=== PATIENT | male | born 1985 | race African-American/Black ===

== ENCOUNTER 2019-03-25 08:19 | Emergency (ER) | payer MEDICAID, MEDICARE, SELFPAY ==
[2019-03-25] MEDS ORDERED: Ondansetron ODT 4 MG TAB ONE (09:32)
[2019-03-25 11:27] LABS: Anion Gap 15 mmol/L (10-20); BUN (Urea Nitrogen) 39 mg/dL (8.9-20.6); Calc. Creatinine Clearance 0 mL/min (70-130); Calcium 9.8 mg/dL (7.8-10.44); Carbon Dioxide 29 mmol/L (22-29); Chloride 95 mmol/L (98-107); Estimated GFR-MDRD 70; Glucose 91 mg/dL (70-105); Sodium 136 mmol/L (136-145)
== END 2019-03-25 11:10 | disposition home or self-care (01) ==
LOC: ERS 08:19
DX: R11.2 Nausea with vomiting, unspecified (principal); F31.9 Bipolar disorder, unspecified; F17.210 Nicotine dependence, cigarettes, uncomplicated
CPT/HCPCS: 36415; 80048; 99284; Q0162

== ENCOUNTER 2019-05-11 18:29 | Emergency (ER) | payer SELFPAY ==
[~2019-05-11 18:29] MED LIST: ISOVUE-370 76%-LOCM 1 ML ONE
[2019-05-11] MEDS ORDERED: Ondansetron ODT 4 MG TAB ONE (19:24)
[2019-05-11 20:02] LABS: #Eosinphils 0.1 thou/uL (0.0-0.7); #Monocytes 0.6 thou/uL (0.11-0.59); #Neutrophils 3.2 thou/uL (1.40-6.50); %Basophils 0.5 % (0.0-1.0); %Eosinophils 0.9 % (0.0-10.0); %Monocytes 10.2 % (0.0-10.0); %Neutrophils 54.4 % (42.0-75.0); Hemoglobin 17.1 g/dL (14.0-18.0); Mean Corpuscular HGB CONC 34.6 g/dL (32.0-36.0); Mean Corpuscular Hemoglobin 34.3 pg (27.0-31.0); Mean Corpuscular Volume 99.1 fL (78.0-98.0); Mean Platelet Volume 7.5 fL (7.4-10.4); Platelet Count 275 thou/uL (130-400); RBC Distribution Width 12.2 % (11.5-14.5); Red Blood Cell (RBC) Count 4.99 mill/uL (4.70-6.10); White Blood Cell (WBC) Count 5.9 thou/uL (4.8-10.8)
[2019-05-11 20:13] LABS: ALT (SGPT) 25 U/L (8-55); AST (SGOT) 22 U/L (5-34); Albumin 5.4 g/dL (3.5-5.0); Alkaline Phosphatase 91 U/L (40-110); Anion Gap 19 mmol/L (10-20); BUN (Urea Nitrogen) 32 mg/dL (8.9-20.6); Bilirubin, Total 0.5 mg/dL (0.2-1.2); Calc. Creatinine Clearance 0 mL/min (70-130); Calcium 10.2 mg/dL (7.8-10.44); Carbon Dioxide 25 mmol/L (22-29); Chloride 98 mmol/L (98-107); Estimated GFR-MDRD 58; Globulin 3.6 g/dL (2.4-3.5); Glucose 87 mg/dL (70-105); Lipase 25 U/L (8-78); Potassium 3.6 mmol/L (3.5-5.1); Sodium 138 mmol/L (136-145)
[2019-05-11 20:15] LABS: Bilirubin Negative (Negative); Blood, Urine Trace (Negative); Clarity Clear (Clear); Glucose, Urine (Dipstick) Normal (Negative); Leukocyte Negative Leu/uL (Negative); Nitrite Negative (Negative); Protein, Urine (Dipstick) 30 mg/dL (Neg-Trace)
[2019-05-11 20:19] LABS: Bacteria/HPF None Seen HPF (None Seen); RBC/HPF None Seen HPF (0-3); Squamous Epithelial 0-3 HPF (0-3); WBC/HPF None Seen HPF (0-3)
--- NOTE | 2019-05-11 20:32 | CT ---
CT OF ABDOMEN AND PELVIS PERFORMED WITH CONTRAST ENHANCEMENT: History: Diffuse abdominal pain with vomiting and diarrhea. FINDINGS: The lung bases are clear. The liver, spleen, pancreas and gallbladder regions appear unremarkable. Right and left adrenal glands and right and left kidneys are normal in size. There is no significant periaortic adenopathy. There is mild mesenteric lymphadenopathy seen. There is mild mesenteric lympha denopathy seen. CT OF PELVIS PERFORMED WITH CONTRAST ENHANCEMENT: There is no evidence of adenopathy, mass, or free fluid. The appendix is normal. IMPRESSION: Findings that would suggest a mild mesenteric adenitis. POS: [facility]
== END 2019-05-11 22:08 | disposition home or self-care (01) ==
LOC: ERS 18:29
DX: R11.2 Nausea with vomiting, unspecified (principal); R19.7 Diarrhea, unspecified; R10.9 Unspecified abdominal pain; F17.210 Nicotine dependence, cigarettes, uncomplicated
CPT/HCPCS: 36415; 74177; 80053; 81003; 81015; 83690; 85025; 96360; 96361; Q0162; Q9966

== ENCOUNTER 2019-05-14 13:24 | Emergency (ER) | payer MEDICARE, SELFPAY ==
[2019-05-14] MEDS ORDERED: Haloperidol Lactate 5 MG/ML VIAL ONE (16:22)
[2019-05-14 16:39] LABS: #Basophils 0.1 thou/uL (0.0-0.2); #Lymphocytes 2.3 thou/uL (1.20-3.40); #Monocytes 0.7 thou/uL (0.11-0.59); %Basophils 1.7 % (0.0-1.0); %Eosinophils 0.3 % (0.0-10.0); %Lymphocytes 32.2 % (21.0-51.0); %Monocytes 9.2 % (0.0-10.0); %Neutrophils 56.6 % (42.0-75.0); Hemoglobin 17.2 g/dL (14.0-18.0); Mean Corpuscular HGB CONC 35.1 g/dL (32.0-36.0); Mean Platelet Volume 7.5 fL (7.4-10.4); Platelet Count 283 thou/uL (130-400); Red Blood Cell (RBC) Count 5.06 mill/uL (4.70-6.10); White Blood Cell (WBC) Count 7.1 thou/uL (4.8-10.8)
[2019-05-14 16:56] LABS: ALT (SGPT) 34 U/L (8-55); AST (SGOT) 29 U/L (5-34); Albumin 5.7 g/dL (3.5-5.0); Alkaline Phosphatase 101 U/L (40-110); Anion Gap 15 mmol/L (10-20); BUN (Urea Nitrogen) 34 mg/dL (8.9-20.6); Bilirubin, Total 0.5 mg/dL (0.2-1.2); Calc. Creatinine Clearance 0 mL/min (70-130); Calcium 10.6 mg/dL (7.8-10.44); Carbon Dioxide 28 mmol/L (22-29); Chloride 96 mmol/L (98-107); Estimated GFR-MDRD 38; Glucose 98 mg/dL (70-105); Lipase 39 U/L (8-78); Potassium 3.9 mmol/L (3.5-5.1); Protein, Total 9.7 g/dL (6.0-8.3); Sodium 135 mmol/L (136-145)
[2019-05-14] MEDS ORDERED: Capsaicin 0.025% Cream 60 gm Tube TOP SCH (17:15)
== END 2019-05-14 17:26 | disposition home or self-care (01) ==
LOC: ERS 13:24
DX: F12.288 Cannabis dependence with other cannabis-induced disorder (principal); N17.9 Acute kidney failure, unspecified; F31.9 Bipolar disorder, unspecified; F17.210 Nicotine dependence, cigarettes, uncomplicated
CPT/HCPCS: 80053; 83690; 85025; 96361; 96374; J1630

== ENCOUNTER 2019-07-05 18:52 | Emergency (ER) | payer MEDICARE ==
[~2019-07-05 18:52] MED LIST changes: -ISOVUE-370 76%-LOCM 1 ML ONE; +Iopamidol-370 76% 500 ML 1 ML ONE
[2019-07-05 19:50] LABS: #Lymphocytes 2.2 thou/uL (1.20-3.40); #Monocytes 0.7 thou/uL (0.11-0.59); #Neutrophils 5.2 thou/uL (1.40-6.50); %Basophils 0.6 % (0.0-1.0); %Eosinophils 0.6 % (0.0-10.0); %Lymphocytes 26.4 % (21.0-51.0); %Neutrophils 63.6 % (42.0-75.0); Hemoglobin 16.9 g/dL (14.0-18.0); Mean Corpuscular HGB CONC 34.4 g/dL (32.0-36.0); Mean Corpuscular Hemoglobin 34.4 pg (27.0-31.0); Mean Platelet Volume 7.2 fL (7.4-10.4); Platelet Count 296 thou/uL (130-400); RBC Distribution Width 12.2 % (11.5-14.5); White Blood Cell (WBC) Count 8.2 thou/uL (4.8-10.8)
[2019-07-05 20:03] LABS: Anion Gap 19 mmol/L (10-20); BUN (Urea Nitrogen) 36 mg/dL (8.9-20.6); Bilirubin, Total 0.4 mg/dL (0.2-1.2); Calc. Creatinine Clearance 0 mL/min (70-130); Calcium 10.2 mg/dL (7.8-10.44); Carbon Dioxide 25 mmol/L (22-29); Chloride 97 mmol/L (98-107); Estimated GFR-MDRD 53; Glucose 91 mg/dL (70-105); Potassium 3.2 mmol/L (3.5-5.1); Protein, Total 8.5 g/dL (6.0-8.3); Sodium 138 mmol/L (136-145)
[2019-07-05 20:04] LABS: ALT (SGPT) 57 U/L (8-55); AST (SGOT) 32 U/L (5-34); Alkaline Phosphatase 84 U/L (40-110); Globulin 3.5 g/dL (2.4-3.5); Lipase 171 U/L (8-78)
[2019-07-05 20:26] LABS: Bilirubin Negative (Negative); Blood, Urine Negative (Negative); Clarity Turbid (Clear); Glucose, Urine (Dipstick) Normal (Negative); Leukocyte Negative Leu/uL (Negative); Nitrite Negative (Negative); Protein, Urine (Dipstick) 20 mg/dL (Neg-Trace); Urobilinogen Normal mg/dL (Less than 2)
--- NOTE | 2019-07-05 20:36 | CT ---
CT Abdomen Pelvis W Con History: Pain in the right lower quadrant Comparison: CT abdomen pelvis April 2019 Findings: Lung bases are clear. No pericardial effusion. Liver, gallbladder, spleen, pancreas are nor mal. The aortoiliac contour is normal. The appendix is visualized and is normal. There are no dilated loops of large or small bowel. No free intraperitoneal gas or fluid. No acute osseous abnormality. No hydronephrosis. Impression: No acute inflammatory process within the abdomen or pelvis. Normal appendix.
[2019-07-05] MEDS ORDERED: Potassium Chloride 20 MEQ TAB ONE (20:52)
[2019-07-05] MEDS ORDERED: Clopidogrel Bisulfate 75 MG TAB ONE (20:52)
== END 2019-07-05 21:25 | disposition home or self-care (01) ==
LOC: ERS 18:52
DX: R11.2 Nausea with vomiting, unspecified (principal); F90.9 Attention-deficit hyperactivity disorder, unspecified type; F31.9 Bipolar disorder, unspecified; F17.210 Nicotine dependence, cigarettes, uncomplicated; Z79.899 Other long term (current) drug therapy
CPT/HCPCS: 36415; 74177; 80053; 81003; 83690; 85025; 96360; Q9967

== ENCOUNTER 2021-04-06 23:23 | Emergency (ER) | payer MEDICARE, MEDICAID ==
[2021-04-06] MEDS ORDERED: Ondansetron PF 4 MG/2 ML Vial ONE (23:56)
[2021-04-07 00:11] LABS: Bilirubin Negative (Negative); Blood, Urine Trace (Negative); Clarity Turbid (Clear); Glucose, Urine (Dipstick) Normal (Negative); Ketone, Urine Trace mg/dL (Negative); Leukocyte Negative Leu/uL (Negative); Nitrite Negative (Negative); Protein, Urine (Dipstick) 100 mg/dL (Neg-Trace); RBC/HPF 0-3 HPF (0-3); Specific Gravity, Urine 1.024 (1.002-1.036); Squamous Epithelial 0-3 HPF (0-3); Urobilinogen 3 mg/dL (Less than 2)
[2021-04-07] MEDS ORDERED: Albuterol Sulfate 1.25 MG/3 ML NEB ONE (00:12)
[2021-04-07 00:14] LABS: Bacteria/HPF 1+ HPF (None Seen)
[2021-04-07 00:20] LABS: Anion Gap 20 mmol/L (10-20); BUN (Urea Nitrogen) 24 mg/dL (8.9-20.6); Calc. Creatinine Clearance 0 mL/min (70-130); Carbon Dioxide 28 mmol/L (22-29); Chloride 95 mmol/L (98-107); Sodium 140 mmol/L (136-145)
[2021-04-07 00:21] LABS: #Lymphocytes 1.8 thou/uL (1.20-3.40); %Eosinophils 0.4 % (0.0-10.0); %Lymphocytes 22.8 % (21.0-51.0); %Monocytes 12.5 % (0.0-10.0); %Neutrophils 64.3 % (42.0-75.0); ALT (SGPT) 25 U/L (8-55); AST (SGOT) 50 U/L (5-34); Albumin 4.8 g/dL (3.5-5.0); Alkaline Phosphatase 84 U/L (40-110); Bilirubin, Total 0.7 mg/dL (0.2-1.2); Calcium 9.8 mg/dL (7.8-10.44); Globulin 4.2 g/dL (2.4-3.5); Glucose 102 mg/dL (70-105); Hemoglobin 15.7 g/dL (14.0-18.0); Lipase 17 U/L (8-78); Mean Corpuscular HGB CONC 34.1 g/dL (32.0-36.0); Mean Corpuscular Hemoglobin 32.9 pg (27.0-31.0); Mean Corpuscular Volume 96.4 fL (78.0-98.0); Mean Platelet Volume 7.5 fL (7.4-10.4); Platelet Count 341 thou/uL (130-400); Red Blood Cell (RBC) Count 4.78 mill/uL (4.70-6.10); White Blood Cell (WBC) Count 7.8 thou/uL (4.8-10.8)
[2021-04-07] MEDS ORDERED: Morphine 4 MG/ML VIAL ONE (01:59)
[2021-04-07] MEDS ORDERED: cefTRIAXone\\ROCEPHIN 1 GM VIAL ONE (01:59)
[2021-04-07] MEDS ORDERED: Potassium Chloride 20 MEQ TAB ONE (03:32)
[2021-04-07] MEDS ORDERED: Iopamidol-370 76% 500 ML 1 ML ONE (10:08)
[2021-04-07 12:42] LABS: SARS-CoV-2 PCR by NAA Not Detected (NotDetected)
== END 2021-04-07 05:10 | disposition home or self-care (01) ==
LOC: ERS 23:23
DX: N39.0 Urinary tract infection, site not specified (principal); E87.6 Hypokalemia; N28.9 Disorder of kidney and ureter, unspecified; R05 Cough; Z20.822 Contact with and (suspected) exposure to COVID-19; F17.210 Nicotine dependence, cigarettes, uncomplicated
CPT/HCPCS: 71045; 74177; 80053; 83690; 85025; U0003; U0005; 36415; 81003; 81015; 96365; 96375; J0696; J2270; J2405; Q9967

== ENCOUNTER 2021-05-13 16:36 | Emergency (ER) | payer MEDICARE, MEDICAID ==
[2021-05-13] MEDS ORDERED: diphenhydrAMINE 25 MG CAP ONE (17:05)
[2021-05-13] MEDS ORDERED: Ondansetron ODT 4 MG TAB ONE (17:11)
[2021-05-14 18:41] LABS: SARS-CoV-2 PCR by NAA Not Detected (NotDetected)
== END 2021-05-13 17:36 | disposition home or self-care (01) ==
LOC: ERS 16:36
DX: R06.7 Sneezing (principal); Z20.822 Contact with and (suspected) exposure to COVID-19
CPT/HCPCS: U0003; U0005; 99283; Q0162; Q0163

== ENCOUNTER 2021-09-02 18:28 | Emergency (ER) | payer MEDICARE, MEDICAID ==
[2021-09-02] MEDS ORDERED: Acetaminophen 500 MG TAB ONE (19:10)
[2021-09-03 18:42] LABS: SARS-CoV-2 PCR by NAA Not Detected (NotDetected)
== END 2021-09-02 19:13 | disposition home or self-care (01) ==
LOC: ERS 18:28
DX: B34.9 Viral infection, unspecified (principal); F17.210 Nicotine dependence, cigarettes, uncomplicated; Z20.822 Contact with and (suspected) exposure to COVID-19
CPT/HCPCS: U0003; U0005; 99285

== ENCOUNTER 2021-10-02 20:05 | Emergency (ER) | payer MEDICARE, OTHER | END 2021-10-02 20:53 | disposition home or self-care (01) | LOC: ERS 20:05 | DX: J06.9 Acute upper respiratory infection, unspecified (principal) | CPT/HCPCS: 99283 ==